=== PATIENT | female | born 1985 | race Caucasian/White ===

== ENCOUNTER → 2024-02-10 | Outpatient (CLI) | payer BC ==
[~2024-02-10] MED LIST: LISINOPRIL20 MG PO; PROAIR RESPICL90 MCG IH; SYMBICORT1 AE3 IH; ZITHROMAX 250M250 MG PO
== END ==
LOC: RAD 08:14
DX: M25.461 Effusion, right knee (principal)

== ENCOUNTER 2024-02-20 14:00 | Outpatient (RCR) | payer BC | END 2024-03-04 | LOC: PT | DX: M25.561 Pain in right knee (principal); G89.29 Other chronic pain ==